=== PATIENT | female | born 1990 | race Caucasian/White ===

== ENCOUNTER 2024-03-23 23:06 | Emergency (ER) | payer OTHER ==
[~2024-03-23] VITALS: Ht 177.8 cm; Wt 110.0 kg
[2024-03-24] MEDS ORDERED: IBUP-1554 PO (00:30)
[2024-03-24] MEDS ORDERED: METH-659 PO (00:30)
[2024-03-24] MEDS ORDERED: ACET-2080 PO (00:30)
[2024-03-24] MEDS: METHOCARBAMOL 500 MG TABLET PO ONE (00:45)
[2024-03-24] MEDS: IBUPROFEN 600 MG TABLET PO ONE (00:45)
[2024-03-24] MEDS: ACETAMINOPHEN/CODEINE 300-30 MG TABLET PO ONE (00:46)
[2024-03-24 02:25] VITALS: BP 124/68; PULSE 75; RESP 16; TEMP 98.3; O2SAT 100
== END 2024-03-24 02:57 | disposition home or self-care (01) ==
LOC: EMS 23:06
DX: S39.012A Strain of muscle, fascia and tendon of lower back, initial encounter (principal); V49.88XA Car occupant (driver) (passenger) injured in other specified transport accidents, initial encounter; Y93.89 Activity, other specified; Y92.89 Other specified places as the place of occurrence of the external cause; Y99.8 Other external cause status
CPT/HCPCS: 72100; 99284; Z7502; Z7610